=== PATIENT | female | born 1955 | race Caucasian/White ===

== ENCOUNTER 2018-10-14 12:56 | Emergency (ER) | payer MEDICARE, OTHER ==
[~2018-10-14] VITALS: Ht 160 cm; Wt 121.6 kg
[2018-10-14 13:53] LABS: BASO # 0.1 x10^3/uL (0.0-0.2); BASO % 2 % (0-3); EOS # 0.5 x10^3/uL (0.0-0.7); EOS % 7 % (0-3); HEMATOCRIT 44.6 % (36.0-47.0); LYMPH # 2.5 x10^3/uL (1.0-4.8); LYMPH % 34 % (24-48); MEAN CORPUSCULAR HEMOGLOBIN 33 pg (25-35); MEAN CORPUSCULAR HGB CONC 34 g/dL (31-37); MEAN CORPUSCULAR VOLUME 96 fL (79-100); MONO # 0.7 x10^3/uL (0.0-1.1); MONO % 10 % (0-9); NEUT # 3.4 x10^3uL (1.8-7.7); NEUT % 47 % (31-73); PLATELET COUNT 300 x10^3/uL (140-400); RED BLOOD COUNT 4.62 x10^6/uL (3.50-5.40); RED CELL DISTRIBUTION WIDTH 12.9 % (11.5-14.5); WHITE BLOOD COUNT 7.2 x10^3/uL (4.0-11.0)
[2018-10-14 13:56] LABS: PROTHROMBIN TIME PATIENT 13.2 SEC (11.7-14.0)
[2018-10-14 13:58] LABS: CALCIUM 9.7 mg/dL (8.5-10.1); CREATININE 1.8 mg/dL (0.6-1.0); GFR 28.2; POTASSIUM 3.9 mmol/L (3.5-5.1)
[2018-10-14] MEDS ORDERED: dilTIAZem IV PUSH 25 MG/5 ML VIAL IVP ONE (14:00)
[2018-10-14] MEDS ORDERED: dilTIAZem INJ 125 MG in IV DEXTROSE 5% 100ML 100 ML IV ONE (14:00)
[2018-10-14 14:05] LABS: ALBUMIN 3.7 g/dL (3.4-5.0); MAGNESIUM 1.8 mg/dL (1.8-2.4); TOTAL BILIRUBIN 0.5 mg/dL (0.2-1.0); TOTAL PROTEIN 7.3 g/dL (6.4-8.2)
[2018-10-14 14:38] VITALS: BP 109/68
--- NOTE | 2018-10-14 14:42 | RAD ---
Single view of the chest. 10/14/2018 1:36 PM Indication: NEAR SYNCOPE Comparison: None Findings: There is no focal consolidation. There is no pleural effusion or pneumothorax. The cardiomediastinal silhouette and pulmonary vasculature are within normal limits. No acute osseous abnormalities are seen. Impression: No evidence of acute cardiopulmonary process. Electronically signed by: Baldo Solitario MD (10/14/2018 2:39 PM) [facility]
--- NOTE | 2018-10-14 14:46 | PHYS DOC ---
Past Medical History Past Medical History: Cancer, COPD, Hypertension, Other Additional Past Medical Histor: CHRONIC BACK PAIN,UTERINE CA Past Surgical History: Cholecystectomy, Hysterectomy, Other Additional Past Surgical Histo: HAND,BACK,SPINAL STIMULATOR,CAROTID ENDARECTOMY R/STENT PLACEMENT Alcohol Use: None Drug Use: None Adult General Chief Complaint Chief Complaint: NEAR SYNCOPE [facility] HPI Patient is a 63 year old female who presents in by EMS because of near syncope. Patient stated she was at [facility] and felt suddenly dizzy and lightheadedness with nausea and almost had a fall without loss of consciousness or head injury. Patient denies chest pain, palpitation, deficit, headache, history of syncope or near-syncope previously. Patient has chronic back pain with stimulator placement without new changes. Patient states she is feeling better now but still feeling generalized weakness. Review of Systems Review of Systems Constitutional: Denies fever or chills [] Eyes: Denies change in visual acuity, redness, or eye pain [] HENT: Denies nasal congestion or sore throat [] Respiratory: Denies cough or shortness of breath [] Cardiovascular: No additional information not addressed in HPI [] GI: Denies abdominal pain, vomiting, bloody stools or diarrhea [] : Denies dysuria or hematuria [] Musculoskeletal: Denies back pain or joint pain [] Integument: Denies rash or skin lesions [] Neurologic: Denies headache, focal weakness or sensory changes , reports dizziness[] Endocrine: Denies polyuria or polydipsia [] All other systems were reviewed and found to be within normal limits, except as documented in this note. Current Medications Current Medications Current Medications Medications (Trade) Dose Ordered Sig/[facility] Start Time Stop Time Status Last Admin Dose Admin Diltiazem HCl (Cardizem Iv Push) 20 mg 1X ONCE 10/14/18 14:00 10/14/18 14:01 DC 10/14/18 14:24 5 MG Diltiazem HCl 125 mg/Dextrose 125 ml @ 10 mls/hr 1X ONCE 10/14/18 14:00 10/14/18 14:57 DC Allergies Allergies Allergies Coded Allergies Type Severity Reaction Last Updated Verified No Known Drug Allergies 10/14/18 No Physical Exam Physical Exam Constitutional: Well developed, well nourished, mild distress, non-toxic appearance. [] HENT: Normocephalic, atraumatic Eyes: PERRLA, EOMI, conjunctiva normal, no discharge. [] Neck: Normal range of motion, no tenderness, supple, no stridor. [] Cardiovascular: Irregularly irregular tachycardia, no murmur [] Lungs & Thorax: Bilateral breath sounds clear to auscultation [] Abdomen: Bowel sounds normal, soft, no tenderness, no masses, no pulsatile masses. [] Skin: Warm, dry, no erythema, no rash. [] Back: No tenderness, no CVA tenderness. [] Extremities: No tenderness, no cyanosis, no clubbing, ROM intact, bilateral lower extremity 1+ edema. [] Neurologic: Alert and oriented X 3, normal motor function, normal sensory function, no focal deficits noted. [] Psychologic: Affect normal, judgement normal, mood normal. [] Current Patient Data Vital Signs Vital Signs Date Time Temp Pulse Resp B/P (MAP) Pulse Ox O2 Delivery O2 Flow Rate FiO2 10/14/18 14:38 70 24 95 10/14/18 14:24 100/58 10/14/18 12:56 97.4 Room Air 97.4 Lab Values Laboratory Tests Test 10/14/18 13:10 White Blood Count 7.2 x10^3/uL (4.0-11.0) Red Blood Count 4.62 x10^6/uL (3.50-5.40) Hemoglobin 15.0 g/dL (12.0-15.5) Hematocrit 44.6 % (36.0-47.0) Mean Corpuscular Volume 96 fL (79-100) Mean Corpuscular Hemoglobin 33 pg (25-35) Mean Corpuscular Hemoglobin Concent 34 g/dL (31-37) Red Cell Distribution Width 12.9 % (11.5-14.5) Platelet Count 300 x10^3/uL (140-400) Neutrophils (%) (Auto) 47 % (31-73) Lymphocytes (%) (Auto) 34 % (24-48) Monocytes (%) (Auto) 10 % (0-9) H Eosinophils (%) (Auto) 7 % (0-3) H Basophils (%) (Auto) 2 % (0-3) Neutrophils # (Auto) 3.4 x10^3uL (1.8-7.7) Lymphocytes # (Auto) 2.5 x10^3/uL (1.0-4.8) Monocytes # (Auto) 0.7 x10^3/uL (0.0-1.1) Eosinophils # (Auto) 0.5 x10^3/uL (0.0-0.7) Basophils # (Auto) 0.1 x10^3/uL (0.0-0.2) Prothrombin Time 13.2 SEC (11.7-14.0) Prothrombin Time INR 1.0 (0.8-1.1) Sodium Level 143 mmol/L (136-145) Potassium Level 3.9 mmol/L (3.5-5.1) Chloride Level 102 mmol/L (98-107) Carbon Dioxide Level 28 mmol/L (21-32) Anion Gap 13 (6-14) Blood Urea Nitrogen 22 mg/dL (7-20) H Creatinine 1.8 mg/dL (0.6-1.0) H Estimated GFR (Cockcroft-Gault) 28.2 BUN/Creatinine Ratio 12 (6-20) Glucose Level 129 mg/dL (70-99) H Calcium Level 9.7 mg/dL (8.5-10.1) Magnesium Level 1.8 mg/dL (1.8-2.4) Total Bilirubin 0.5 mg/dL (0.2-1.0) Aspartate Amino Transferase (AST) 24 U/L (15-37) Alanine Aminotransferase (ALT) 30 U/L (14-59) Alkaline Phosphatase 49 U/L (46-116) Creatine Kinase 195 U/L (26-192) H Troponin I Quantitative < 0.017 ng/mL (0.000-0.055) SK-Iag-S-Type Natriuretic Peptide 189 pg/mL (0-124) H Total Protein 7.3 g/dL (6.4-8.2) Albumin 3.7 g/dL (3.4-5.0) Albumin/Globulin Ratio 1.0 (1.0-1.7) Laboratory Tests 10/14/18 13:10 Laboratory Tests 10/14/18 13:10 EKG EKG EKG interpreted by me. EKG at 1310 showed multiple artifact because of the stimulator with sinus rhythm at rate of [address] and T-wave abnormalities, patient had tachycardia and repeated EKG at 1332 showed atrial fibrillation with RVR at rate of 140s. Radiology/Procedures Radiology/Procedures [facility] [address] [place] [address] IMAGING REPORT Signed PATIENT: GENA GUTHRIE ACCOUNT: [id number] : 1955 LOCATION: ER AGE: 63 SEX: F EXAM STATUS: REG ER ORD. PHYSICIAN: CAROLYNN MAHARAJ MD REASON: near-syncope PROCEDURE: PORTABLE CHEST 1V Single view of the chest. 10/14/2018 1:36 PM Indication: NEAR SYNCOPE Comparison: None Findings: There is no focal consolidation. There is no pleural effusion or pneumothorax. The cardiomediastinal silhouette and pulmonary vasculature are within normal limits. No acute osseous abnormalities are seen. Impression: No evidence of acute cardiopulmonary process. Electronically signed by: Teena Mohamud MD (10/14/2018 2:39 PM) [facility] DICTATED and SIGNED BY: TEENA MOHAMUD MD DATE: 10/14/18 1438 Course & Med Decision Making Course & Med Decision Making Pertinent Labs and Imaging studies reviewed. (See chart for details) Dilution of patient in ER showed 63-year-old female patient brought in by EMS because of near syncopal episode while she was asked to see the. Patient had sinus rhythm at arrival to ER but in short time had atrial flutter physician with RVR with heart rate of 140s. Cardizem bolus was started and heart rate changed to sinus rhythm without tachycardia. Patient refuses hospitalization and signed AGAINST MEDICAL ADVICE. Patient instructed to follow-up with her primary care physician and care transport nurse. Dragon Disclaimer Dragon Disclaimer This electronic medical record was generated, in whole or in part, using a voice recognition dictation system. Departure Departure Impression: Primary Impression: Atrial fibrillation with RVR Additional Impressions: Near syncope Chronic back pain Noncompliance by refusing service Renal insufficiency Disposition: AGAINST MEDICAL ADVICE (at 1440) Condition: IMPROVED Referrals: UNKNOWN PCP NAME (PCP) Patient Instructions: Atrial Fibrillation Additional Instructions: Follow-up with your primary care physician and care transport nurse as soon as possible Problem Qualifiers Additional Impressions: Chronic back pain Back pain location: low back pain Back pain laterality: unspecified CAROLYNN MAHARAJ MD Oct 14, 2018 14:46
--- NOTE | 2018-10-14 14:59 | EKG ---
[facility] [address] [place] [address] Test Date: 2018-10-14 Test Time: 13:10:38 Pat Name: GENA GUTHRIE Department: Room: Gender: F [employer] Operator: : 1955 Requested By: CAROLYNN MAHARAJ Order Number: [id number] Reading MD: Marshal Mcwilliams MD Measurements Intervals [place] Rate: 88 P: 41 OR: 158 QRS: 74 QRSD: 168 T: 56 QT: 374 QTc: 456 Interpretive Statements UNABLE TO INTERPRET DUE TO ARTIFACT Electronically Signed On 10-14-2018 15:23:17 [employer] by Marshal Mcwilliams MD
== END 2018-10-14 14:48 | disposition left against medical advice (07) ==
LOC: ER 12:56
DX: R55 Syncope and collapse (principal); G89.29 Other chronic pain; M54.9 Dorsalgia, unspecified; N28.9 Disorder of kidney and ureter, unspecified; I48.2 Chronic atrial fibrillation; Z91.19 Patient's noncompliance with other medical treatment and regimen; J44.9 Chronic obstructive pulmonary disease, unspecified; I10 Essential (primary) hypertension; Z90.710 Acquired absence of both cervix and uterus; Z90.49 Acquired absence of other specified parts of digestive tract; Z95.5 Presence of coronary angioplasty implant and graft
CPT/HCPCS: 36415; 71045; 80053; 82550; 83735; 83880; 84484; 85025; 85610; 93005; 96374; 99284; J3490